=== PATIENT | female | born 1995 | race Caucasian/White ===

== ENCOUNTER 2020-07-22 12:58 | Emergency (ER) | payer OTHER ==
[~2020-07-22] VITALS: Ht 165.1 cm; Wt 57.2 kg
[2020-07-22] MEDS ORDERED: CELEXA40 MG PO (13:06)
[2020-07-22] MEDS ORDERED: ORPHENADRINE C100 MG PO (17:02)
[2020-07-22] MEDS ORDERED: CELEBREX100 MG PO (17:02)
== END 2020-07-22 18:06 | disposition home or self-care (01) ==
LOC: ER 12:58
DX: M62.838 Other muscle spasm (principal); N39.0 Urinary tract infection, site not specified